=== PATIENT | male | born 1985 | race American Indian/Alaskan Native ===

== ENCOUNTER 2020-07-26 00:25 | Emergency (ER) | payer OTHER ==
[~2020-07-26] VITALS: Ht 170.2 cm; Wt 77.1 kg
[2020-07-26 00:44] VITALS: BP 138/73
--- NOTE | 2020-07-26 00:46 | NUR ---
eva with FWW to chair A.
--- NOTE | 2020-07-26 01:06 | NUR ---
ceramic tilerLuz, # [id number] translating for Dr. Corona for MSE.
[2020-07-26 01:09] VITALS: BP 138/73
[2020-07-26] MEDS ORDERED: KETOROLAC 30 MG/ML VIAL ONE (01:13)
[2020-07-26] MEDS: KETOROLAC 30 MG/ML VIAL IM ONE (01:19)
--- NOTE | 2020-07-26 02:20 | NUR ---
Patient discharged with v/s stable. Written and verbal after care instructions given and explained. Patient alert, oriented and verbalized understanding of instructions. Ambulatory with steady gait. All questions addressed prior to discharge. ID band removed. Patient advised to follow up with PMD. Rx of robaxin and naprosyn given. Patient educated on indication of medication including possible reaction and side effects. Opportunity to ask questions provided and answered.
== END 2020-07-26 02:21 | disposition home or self-care (01) ==
LOC: MED 00:25
DX: M54.5 Low back pain (principal); M62.830 Muscle spasm of back
CPT/HCPCS: 96372; 99283; J1885